=== PATIENT | male | born 1930 | race Caucasian/White ===

== ENCOUNTER 2017-08-03 18:22 | Emergency (ER) | payer MEDICARE, MEDICAID ==
[2017-08-03 18:22] VITALS: BMI 22.4
--- NOTE | 2017-08-03 20:04 | C.PDOC ---
History Of Present Illness 87 year old male with PMHx of HTN, DM presents to the ED for evaluation of a dry cough with fever for last few days. Patient is also c/o chest pain and SOB. Patient denies nausea, vomit, diarrhea, abdominal pain, headache, nasal congestion, sore throat, recent travel ,sick contacts. Time Seen by Provider: 08/03/17 19:53 Chief Complaint (Nursing): Shortness Of Breath History Per: Patient History/Exam Limitations: no limitations Onset/Duration Of Symptoms: Days Current Symptoms Are (Timing): Still Present Sick Contacts (Context): None Associated Symptoms: Fever, Cough, Other (CP, SOB) Recent travel outside of the [place]: No Additional History Per: Patient Past Medical History Reviewed: Historical Data, Nursing Documentation, Vital Signs Vital Signs: Last Vital Signs Temp 99.1 F 08/03/17 22:32 Pulse 81 08/03/17 22:32 Resp 16 08/03/17 22:32 BP 162/91 H 08/03/17 22:32 Pulse Ox 97 08/03/17 22:32 - Medical History PMH: Arthritis, HTN, Peripheral Edema (leg swelling) Surgical History: No Surg Hx Family History: States: Unknown Family Hx - Social History Hx Alcohol Use: No Hx Substance Use: No - Immunization History Hx Tetanus Toxoid Vaccination: No Hx Influenza Vaccination: No Review Of Systems Constitutional: Positive for: Fever. Negative for: Chills Cardiovascular: Positive for: Chest Pain. Negative for: Palpitations Respiratory: Positive for: Cough (dry), Shortness of Breath Gastrointestinal: Negative for: Nausea, Vomiting, Abdominal Pain Genitourinary: Negative for: Dysuria, Hematuria Skin: Negative for: Rash Neurological: Negative for: Weakness, Numbness, Headache Physical Exam - Physical Exam Appears: Non-toxic, No Acute Distress Skin: Normal Color, Warm, Dry Head: Atraumatic, Normacephalic Eye(s): bilateral: Normal Inspection Nose: No Discharge, No Deformity Oral Mucosa: Moist Throat: Normal, No Erythema, No Exudate Neck: Normal ROM, Supple Chest: Symmetrical Cardiovascular: Rhythm Regular, No Murmur Respiratory: No Rales, Rhonchi (scattered), No Wheezing Gastrointestinal/Abdominal: Soft, No Tenderness, No Guarding, No Rebound Extremity: Normal ROM, No Pedal Edema, No Calf Tenderness, No Deformity, No Swelling Neurological/Psych: Oriented x3, Normal Speech, Normal Cognition Gait: Steady ED Course And Treatment - Laboratory Results Result Diagrams: 08/03/17 20:32 08/03/17 20:32 ECG: Interpreted By Me, Viewed By Me ECG Rhythm: Sinus Rhythm, 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) ECG Interpretation: No Changes From Prior Interpretation Of ECG: Sinus at 87 BPM second degreee type I AV block, with no changes from prior Rate From EC O2 Sat by Pulse Oximetry: 97 (On RA) Pulse Ox Interpretation: Normal - Radiology CXR: Interpreted by Me, Viewed By Me CXR Interpretation: No: No Acute Disease, Infiltrates Medical Decision Making Medical Decision Making: Impression : cough, fever, CP and SOB Plan: * VBG * EKG * Labs * CXR * Tylenol 975 mg PO * Blood culture * Urine culture * Influenza A B test * UA Labs are unremarkable, patient prefers to go home instead of staying in the hospital for observation, admission to the hospital. Disposition - Disposition Referrals: [facility] [Outside] [facility] [Outside] Disposition: HOME/ ROUTINE Disposition Time: 11:00 Condition: STABLE Additional Instructions: please follow up with your doctor. return to er with worsneing symptoms or concerns. Prescriptions: Oseltamivir Phosphate [Tamiflu] 75 mg PO BID #10 capsule Instructions: Influenza (ED) Forms: [facility] (Greek) Print Language: TAJIK - Clinical Impression Clinical Impression: Influenza - Scribe Statement The provider has reviewed the documentation as recorded by the Scribe Cortez Freed All medical record entries made by the Scribe were at my direction and personally dictated by me. I have reviewed the chart and agree that the record accurately reflects my personal performance of the history, physical exam, medical decision making, and the department course for this patient. I have also personally directed, reviewed, and agree with the discharge instructions and disposition.
[2017-08-03 20:41] LABS: BASO # 0.1 K/uL (0.0-0.2); BASO % 1.1 % (0.0-2.0); EOS # 0.2 K/uL (0.0-0.7); EOS % 3.5 % (0.0-4.0); HEMOGLOBIN 15.3 g/dL (12.0-18.0); LYMPH # 0.9 K/uL (1.0-4.3); LYMPH % 15.6 % (20.0-40.0); MEAN CELL VOLUME 92.4 fL (80.0-94.0); MEAN CORPUSCULAR HEMOGLOBIN 30.9 pg (27.0-31.0); MEAN CORPUSCULAR HGB CONC 33.5 g/dL (33.0-37.0); MEAN PLATELET VOLUME 10.2 fL (7.2-11.7); MONO # 0.7 K/uL (0.0-0.8); MONO % 12.7 % (0.0-10.0); NEUT # 3.8 K/uL (1.8-7.0); NEUT % 67.1 % (50.0-75.0); NRBC % 0.1 % (0.0-2.0); RBC 4.94 Mil/uL (4.40-5.90); RED CELL DISTRIBUTION WIDTH 14.8 % (11.5-14.5); WHITE BLOOD COUNT 5.6 K/uL (4.8-10.8)
[2017-08-03 20:43] LABS: VENOUS BLOOD GAS BASE EXCESS 0.1 mmol/L (0.0-2.0); VENOUS BLOOD GAS PCO2 39 mmHg (40-60); VENOUS BLOOD GAS PO2 27 mm/Hg (30-55); VENOUS BLOOD PH 7.41 (7.32-7.43)
[2017-08-03 20:47] LABS: ALBUMIN 4.3 g/dL (3.5-5.0); CALCIUM 8.7 mg/dl (8.6-10.4)
[2017-08-03 20:50] LABS: INR 1.2; PROTHROMBIN TIME 13.2 SECONDS (9.7-12.2)
[2017-08-03 21:02] LABS: TROPONIN I 0.033 ng/mL (0.00-0.120)
[2017-08-03 22:48] VITALS: BP 162/91; PULSE 81; RESP 16; TEMP 99.1; O2SAT 97
--- NOTE | 2017-08-04 08:20 | RAD ---
PROCEDURE: CHEST RADIOGRAPH, 1 VIEW HISTORY: chest pain COMPARISON: Portable chest 07/29/2015 and 11/27/2012. FINDINGS: LUNGS: No acute infiltrate identified bilaterally. PLEURA: No pneumothorax or pleural fluid seen. CARDIOVASCULAR: Overall cardiomediastinal silhouette appears stable. There is no pulmonary vascular derangement identified. OSSEOUS STRUCTURES: No significant abnormalities. VISUALIZED UPPER ABDOMEN: Normal. OTHER FINDINGS: None. IMPRESSION: No definitive acute cardiopulmonary disease appreciable. No significant interval change overall.
--- NOTE | 2017-08-04 11:12 | CARD ---
APPROVED REPORT EKG Measurement Heart [id number] P30 [id number] <Conclusion> Sinus rhythm,apcs. non specific st t changes. Abnormal ECG
== END 2017-08-03 22:42 | disposition home or self-care (01) ==
LOC: C.ER 18:22
DX: J11.1 Influenza due to unidentified influenza virus with other respiratory manifestations (principal); I10 Essential (primary) hypertension; E11.9 Type 2 diabetes mellitus without complications